=== PATIENT | male | born 1980 | race African-American/Black ===

== ENCOUNTER 2019-12-26 18:20 | Emergency (ER) | payer OTHER ==
[2019-12-26 18:28] VITALS: BP 121/66
--- NOTE | 2019-12-26 18:50 | ED Physician Documentation ---
PD HPI UPPER EXT INJURY - Stated complaint Stated Complaint: RT FINGER LAC - Chief complaint Chief Complaint: Laceration - History obtained from History obtained from: Patient - History of Present Illness Location: Right, Finger (dorsal ring finger) Type of injury: Laceration (accidentally cut with knife in kitchen.) Where injury occurred: Home Timing - onset: How many hours ago (1), Today Timing - duration: Hours ( still having bleeding despite direct pressure, so here for eval. Did stop bleeding since here.) Timing - details: Abrupt onset Worsened by: Moving Associated symptoms: No: Weakness, Numbness Similar symptoms before: Has not had sx before Review of Systems Skin: reports: Laceration (s) Neurologic: denies: Focal weakness, Numbness PD PAST MEDICAL HISTORY - Past Medical History Past Medical History: No - Past Surgical History Past Surgical History: No - Allergies Allergies/Adverse Reactions: Allergies Allergy/AdvReac Type Severity Reaction Status Date / Time No Known Drug Allergies Allergy Verified 12/26/19 18:28 - Social History Does the pt smoke?: No Smoking Status: Never smoker Does the pt drink ETOH?: Yes Does the pt have substance abuse?: No PD ED PE NORMAL - Vitals Vital signs reviewed: Yes - General General: Alert and oriented X 3, No acute distress, Well developed/nourished - Derm Derm: Normal color, Warm and dry - Extremities Extremities: Other (Right ring finger dorsally has a laceration extends over the middle phalanx to the DIP. Its just full-thickness of the skin but does not involve any deeper structures. There is good full extension against resistance. There is normal sensation at the tip. It does not split with movement of the finger. No foreign bodies are seen.) - Neuro Neuro: Alert and oriented X 3, No motor deficit, No sensory deficit, Normal speech Results - Vitals Vitals: Vital Signs - 24 hr 12/26/19 18:26 Temperature 36.8 C Heart Rate 67 Respiratory 17 Rate Blood Pressure 121/66 O2 Saturation 98 Oxygen O2 Source Room air Procedures - Laceration (location) right ring finger Length in cm: 1.5 Wound type: Linear, Into subcut fat, Clean. No: Into muscle Neurovascular status: Sensory intact, Motor intact, Vascular intact Tendon involvement: Tendon intact Wound Preparation: Wound explored, To the base. No: FB identified Skin layer closure: Dermabond, Steri strips Other: Patient tolerated well, Dressing applied Complexity: Simple PD MEDICAL DECISION MAKING - ED course Complexity details: considered differential (The cut is not too deep and does not open with simple easy flexion. He would prefer not having stitches. I think it can be held together with Steri-Strips and glue.), d/w patient Departure - Departure Disposition: 01 Home, Self Care Clinical Impression: Finger laceration Qualifiers: Encounter type: initial encounter Finger: ring finger Damage to nail status: without damage Foreign body presence: without foreign body Laterality: right Qualified Code(s): S61.214A - Laceration without foreign body of right ring finger without damage to nail, initial encounter Condition: Stable Record reviewed to determine appropriate education?: Yes Instructions: ED Laceration Hand Comments: Keep the area clean and dry. Allow the Steri-Strips and tape to fall off on their own after several days or so. Gentle use of the hand and avoid firm gripping and flexion extension through full range of motion. Tylenol ibuprofen if needed for pains. Recheck if signs of infection. Once the tapes fall off, you should be able to continue with just regular wound care with soap and water and ointment and Band-Aids. Discharge Date/Time: 12/26/19 19:24
== END 2019-12-26 19:24 | disposition home or self-care (01) ==
LOC: ED 18:20
DX: S61.214A Laceration without foreign body of right ring finger without damage to nail, initial encounter (principal); W26.0XXA Contact with knife, initial encounter; Y92.000 Kitchen of unspecified non-institutional (private) residence as the place of occurrence of the external cause
CPT/HCPCS: 12001; 99281; 99283

== ENCOUNTER 2020-11-11 17:08 | Emergency (ER) | payer OTHER ==
[2020-11-11] MEDS ORDERED: IBUPROFEN 800 MG TABLET PO STA (17:31)
--- NOTE | 2020-11-11 17:32 | ED Physician Documentation ---
History of Present Illness - Stated complaint Stated Complaint: HEADACHE - Chief complaint Chief Complaint: General - History obtained from History obtained from: Patient - Additonal information Additional information: He had a second coronavirus shot around 9 AM yesterday morning. He woke up around 3 AM this morning with a headache, body aches, chills. He does have a runny nose but that is not new. No cough, shortness of breath, loss of taste or smell, or neck stiffness. Review of Systems Constitutional: reports: Chills, Myalgias Nose: reports: Rhinorrhea / runny nose Cardiac: denies: Chest pain / pressure, Palpitations Respiratory: denies: Dyspnea, Cough PD PAST MEDICAL HISTORY - Past Surgical History Past Surgical History: No - Present Medications Home Medications: Ambulatory Orders Medication Instructions Recorded Confirmed Ibuprofen [Motrin] 800 mg PO Q8H PRN #30 tablet 11/11/20 - Allergies Allergies/Adverse Reactions: Allergies Allergy/AdvReac Type Severity Reaction Status Date / Time No Known Drug Allergies Allergy Verified 11/11/20 17:11 - Social History Does the pt smoke?: No Smoking Status: Never smoker Does the pt drink ETOH?: Yes Does the pt have substance abuse?: No PD ED PE NORMAL - Vitals Vital signs reviewed: Yes - General General: Alert and oriented X 3, No acute distress - HEENT HEENT: PERRL, EOMI - Neck Neck: Supple, no meningeal sign, No bony TTP - Back Back: No CVA TTP, No spinal TTP - Derm Derm: Normal color, Warm and dry - Extremities Extremities: No edema, No calf tenderness / cord - Neuro Neuro: Alert and oriented X 3, No motor deficit, No sensory deficit, Normal speech - Psych Psych: Normal mood, Normal affect Results - Vitals Vitals: Vital Signs - 24 hr 11/11/20 17:11 Temperature 38.4 C H Heart Rate 97 Respiratory 17 Rate Blood Pressure 108/73 O2 Saturation 100 Oxygen O2 Source Room air PD MEDICAL DECISION MAKING - ED course ED course: 40-year-old gentleman with typical viral syndrome with headache the day after receiving second coronavirus vaccine, likely a normal reaction to same, but will CT head out of an abundance of caution. Departure - Departure Disposition: 01 Home, Self Care Clinical Impression: Headache Qualifiers: Headache type: tension-type Headache chronicity pattern: acute headache Intractability: not intractable Qualified Code(s): G44.209 - Tension-type headache, unspecified, not intractable Vaccine reaction Qualifiers: Encounter type: initial encounter Qualified Code(s): T50.Z95A - Adverse effect of other vaccines and biological substances, initial encounter Condition: Good Record reviewed to determine appropriate education?: Yes Instructions: ED Cephalgia Unspecified Prescriptions: Ibuprofen [Motrin] 800 mg PO Q8H PRN #30 tablet PRN Reason: PAIN &/OR FEVER Comments: Headache and fever are actually fairly typical after the second coronavirus vaccine. In my experience this should go away 18 to 36 hours after the onset of symptoms, so should not go past tomorrow evening. Return if worsening. Also return if not better in that timeframe. Forms: Activity restrictions
--- NOTE | 2020-11-11 17:52 | CT Report ---
PROCEDURE: HEAD WO INDICATIONS: headache TECHNIQUE: Noncontrast 4.5 mm thick angled axial sections acquired from the foramen magnum to the vertex. For r adiation dose reduction, the following was used: automated exposure control, adjustment of mA and/or kV according to patient size. COMPARISON: None. FINDINGS: Image quality: Excellent. CSF spaces: Basal cisterns are patent. No extra-axial fluid collections. Ventricles are normal in size and shape. Brain: No midline shift. No intracranial masses or hemorrhage. Benavides-white matter interface is norm al. Skull and face: Calvarium and visualized facial bones are intact, without suspicious lesions. Sinuses: Visualized sinuses and mastoids are clear. IMPRESSION: No acute intracranial disease process. Reviewed by: Purnima Salguero MD, PhD on 11/11/2020 4:51 PM [facility] Approved by: Purnima Salguero MD, PhD on 11/11/2020 4:51 PM [facility] Station ID: [id number]
[2020-11-11 18:09] VITALS: BP 118/90
== END 2020-11-11 18:09 | disposition home or self-care (01) ==
LOC: ED 17:08
DX: G44.209 Tension-type headache, unspecified, not intractable (principal); R68.83 Chills (without fever); T50.Z95A Adverse effect of other vaccines and biological substances, initial encounter; Y84.8 Other medical procedures as the cause of abnormal reaction of the patient, or of later complication, without mention of misadventure at the time of the procedure
CPT/HCPCS: 70450; 99283; 99284; A9270

== ENCOUNTER 2021-03-24 14:53 | Outpatient (CLI) | payer OTHER ==
--- NOTE | 2021-03-24 17:18 | MRI Report ---
PROCEDURE: Lumbar Spine W/O INDICATIONS: LOW BACK PAIN TECHNIQUE: Noncontrast sagittal T1 spin echo and T2 fast echo, sagittal STIR, axial T1 and T2 fast spin echo thr ough the lumbar spine. In cases with scoliosis, additional coronal T2 fast spin echo may be performe d. COMPARISON: None. FINDINGS: Image quality: Excellent. Alignment and Curvature: There is normal bony alignment. Bone Marrow: Marrow is of normal overall signal. No acute vertebral body compression fractures. Spinal Cord: Conus medullaris terminates at the L1 level. Visualized cord demonstrates normal signa l and size. Paraspinous Soft Tissues: No paravertebral masses. T12-L1: Normal in appearance. L1-L2: Normal in appearance. L2-L3: Normal in appearance. L3-L4: Normal in appearance. L4-L5: Normal in appearance. L5-S1: Normal in appearance. IMPRESSION: This is a normal Spine. Reviewed by: Kenyon Escalona MD on 03/24/2021 4:17 PM [facility] Approved by: Kenyon Escalona MD on 03/24/2021 4:17 PM [facility] Station ID: [id number]
== END 2021-03-24 14:54 | disposition home or self-care (01) ==
LOC: DI 14:53
PROVIDERS: ATTEND Family Medicine
DX: M54.5 Low back pain (principal); M54.2 Cervicalgia